=== PATIENT | female | born 1975 | race Caucasian/White ===

== ENCOUNTER 2018-01-24 15:09 | Inpatient (IN) ==
[2018-01-24] MEDS ORDERED: ceFAZolin 2 GM Premix Inj 2 GM/50 ML PIGGYBACK IV.SIG ONE (15:16)
[2018-01-24] MEDS ORDERED: Diphtheria/Tetanus/Pertussis Vaccine Inj 0.5 ML Syringe IM ONE (15:16)
[2018-01-24] MEDS ORDERED: Lidocaine 1%/Epinephrine 1:100,000 Inj 50 ML Vial ONE (15:18)
[2018-01-24] MEDS ORDERED: Morphine Sulfate Inj 2 MG/ML Vial ONE (15:22)
[2018-01-24] MEDS ORDERED: fentaNYL Citrate Inj 100 MCG/2 ML Ampul ONE (15:25)
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
[2018-01-24 15:36] LABS: Baso # (Auto) 0.1 th/mm3 (0.0-0.2); Baso % (Auto) 0.8 % (0.0-2.0); Eos # (Auto) 0.3 th/mm3 (0.0-0.4); Eos % (Auto) 2.1 % (0.0-4.0); Hematocrit 35.6 % (35.0-46.0); Hemoglobin 12.5 gm/dL (11.6-15.3); Lymph # (Auto) 4.9 th/mm3 (1.0-4.8); Lymph % (Auto) 32.9 % (9.0-44.0); Mean Corpuscular HGB Conc 35.1 % (32.0-36.0); Mean Corpuscular Hemoglobin 29.7 pg (27.0-34.0); Mean Corpuscular Volume 84.7 fL (80.0-100.0); Mean Platelet Volume 6.9 fL (7.0-11.0); Mono # (Auto) 0.8 th/mm3 (0.0-0.9); Mono % (Auto) 5.2 % (0.0-8.0); Neut # (Auto) 8.8 th/mm3 (1.8-7.7); Platelet Count 336 th/mm3 (150-450); Red Cell Distribution Width 16.9 % (11.6-17.2); White Blood Count 14.9 th/mm3 (4.0-11.0)
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
[2018-01-24 15:49] LABS: Activated Partial Thrombo Time 20.6 sec (24.3-30.1)
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
[2018-01-24] MEDS ORDERED: Bacitracin Oint 0.9 GM Packet TOPICAL PRN (16:13)
[2018-01-24] MEDS ORDERED: Post-op Orders (for Pharmacy) OTHER STA (16:13)
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
[2018-01-24 20:35] LABS: Albumin 3.4 g/dL (3.4-5.0); Anion Gap 13 meq/L (5-15); Aspartate Aminotransferase 36 U/L (15-37); Blood Urea Nitrogen 17 mg/dL (7-18); Calcium 8.4 mg/dL (8.5-10.1); Carbon Dioxide 17.1 meq/L (21.0-32.0); Chloride 110 meq/L (98-107); Glomerular Filtration Rate 43 mL/min (>89); Glucose,Random 209 mg/dL (74-106); Potassium 3.9 meq/L (3.5-5.1); Sodium 140 meq/L (136-145)
[2018-01-24 20:36] LABS: Alanine Aminotransferase 17 U/L (10-53)
[2018-01-24 20:39] LABS: Alkaline Phosphatase 70 U/L (45-117); Total Protein 6.6 g/dL (6.4-8.2)
[2018-01-24] MEDS ORDERED: Enoxaparin Inj 30 MG/0.3 ML Syringe SQ SCH (21:00)
[2018-01-24] MEDS: Senna/Docusate Sodium 8.6/50 MG Tablet PO SCH (21:46)
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
[2018-01-25] MEDS: Enoxaparin Inj 30 MG/0.3 ML Syringe SQ SCH ×2 (08:02→20:46)
[2018-01-25] MEDS: Pantoprazole Sodium 20 MG DR Tablet PO SCH ×2 (08:03→22:11)
[2018-01-25] MEDS: Senna/Docusate Sodium 8.6/50 MG Tablet PO SCH ×2 (08:03→20:47)
[2018-01-25 09:47] LABS: Baso % (Auto) 0.3 % (0.0-2.0); Eos # (Auto) 0.1 th/mm3 (0.0-0.4); Eos % (Auto) 0.8 % (0.0-4.0); Hematocrit 33.6 % (35.0-46.0); Hemoglobin 11.1 gm/dL (11.6-15.3); Lymph # (Auto) 1.6 th/mm3 (1.0-4.8); Lymph % (Auto) 17.8 % (9.0-44.0); Mean Corpuscular Hemoglobin 27.9 pg (27.0-34.0); Mean Corpuscular Volume 84.6 fL (80.0-100.0); Mean Platelet Volume 6.5 fL (7.0-11.0); Mono # (Auto) 0.8 th/mm3 (0.0-0.9); Mono % (Auto) 9.1 % (0.0-8.0); Neut # (Auto) 6.5 th/mm3 (1.8-7.7); Platelet Count 296 th/mm3 (150-450); Red Blood Count 3.98 mil/mm3 (4.00-5.30); Red Cell Distribution Width 17.3 % (11.6-17.2)
[2018-01-25 10:18] LABS: Anion Gap 8 meq/L (5-15); Blood Urea Nitrogen 6 mg/dL (7-18); Calcium 8.5 mg/dL (8.5-10.1); Carbon Dioxide 22.7 meq/L (21.0-32.0); Chloride 110 meq/L (98-107); Glomerular Filtration Rate Greater Than 89 mL/min (>89); Glucose,Random 133 mg/dL (74-106); Potassium 3.6 meq/L (3.5-5.1); Sodium 141 meq/L (136-145)
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
[2018-01-26] MEDS: Pantoprazole Sodium 20 MG DR Tablet PO SCH (09:32)
[2018-01-26] MEDS: Enoxaparin Inj 30 MG/0.3 ML Syringe SQ SCH ×2 (09:32→21:01)
[2018-01-26] MEDS: Senna/Docusate Sodium 8.6/50 MG Tablet PO SCH ×2 (09:32→21:01)
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
[2018-01-27] MEDS: Enoxaparin Inj 30 MG/0.3 ML Syringe SQ SCH (09:52)
[2018-01-27] MEDS: Senna/Docusate Sodium 8.6/50 MG Tablet PO SCH (09:53)
[2018-01-27] MEDS: Pantoprazole Sodium 20 MG DR Tablet PO SCH (09:53)
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
== END 2018-01-27 13:38 ==
LOC: NEDA 15:09 → NEPI 15:09 → EDBD 17:03 → N06 17:05
PROVIDERS: ADMIT Surgery; ATTEND Surgery